=== PATIENT | male | born 1995 | race Caucasian/White ===

== ENCOUNTER 2022-05-14 14:11 | Emergency (ER) | payer SELFPAY ==
[~2022-05-14] VITALS: Ht 165.1 cm; Wt 75.0 kg
[2022-05-14 14:26] VITALS: BP 162/97
== END 2022-05-14 20:00 | disposition left against medical advice (07) ==
LOC: ER 14:11
DX: Z53.21 Procedure and treatment not carried out due to patient leaving prior to being seen by health care provider (principal)